=== PATIENT | male | born 1950 | race Caucasian/White ===

== ENCOUNTER → 2016-07-01 | Outpatient (CLI) | payer MEDICARE ==
[2015-09-22 12:47] VITALS: BP 105/50
[~2016-07-01] MED LIST: ALLO300T PO; CANA100T PO; CARV12.52 PO; FURO40TA4 PO; HYDR-2679 PO; HYDR1TAB14 PO; INSU100I11 SQ; INSU100V13 SQ; METO5TAB4 PO; MINO50TA2 PO; POTA10CA PO; SAXA1TBM3 PO; SITA1TAB11 PO; VALS1TAB29 PO; [UNRECOGNIZED DRUG - CODE] PO
--- NOTE | 2016-07-01 12:59 | CARD ---
APPROVED REPORT EXAM: Two-dimensional and M-mode echocardiogram with Doppler and color Doppler. Other Information Quality : Average Rhythm : NSR INDICATION Murmur 2D DIMENSIONS RVDd3.2 (2.9-3.5cm)Left Atrium(2D)3.4 (1.6-4.0cm) IVSd1.0 (0.7-1.1cm)Aortic Root(2D)3.6 (2.0-3.7cm) LVDd4.7 (3.9-5.9cm)LVOT Diameter2.4 (1.8-2.4cm) PWd1.0 (0.7-1.1cm)LVDs3.4 (2.5-4.0cm) FS (%) 27.8 %SV55.4 ml LVEF(%)53.8 (>50%) Aortic Valve AoV Peak Sean.95.0cm/sAoV VTI14.3cm AO Peak GR.3.6mmHgLVOT Peak Sean.74.8cm/s LVOT VTI 13.26cmAO Mean GR.2mmHg SAFIA (VMAX)3.23lj9VZJ (VTI)4.30cm2 Mitral Valve MV E Ynaqsdpj68.6cm/sMV DECEL UCEP549ah MV A Puojdkjv80.1cm/sMV E Mean Gr.1mmHg MV MMG47emB/A Ratio0.8 MV A Mrxnixpm118lnHPC (PHT)4.16cm2 TDI E/Lateral E'7.9E/Medial E'8.3 Pulmonary Valve PV Peak Dfdxovwe95.6cm/sPV Peak Grad.3mmHg RVOT VTI12.5cm Tricuspid Valve TR P. Duovavzy133as/sRAP SKMZPTIK7hsUq TR Peak Gr.73slVpMRQF75vgPy Pulmonary Vein S1 Ucrrcztm65.9cm/sD2 Dxhnldys78.9cm/s LEFT VENTRICLE The left ventricle is normal size. There is normal left ventricular wall thickness. Left ventricle sy stolic function is normal. The Ejection Fraction is 50-55%. There is normal LV segmental wall motion. Tissue Doppler imaging reveals mild left ventricular diastolic dysfunction. Transmitral Doppler flow pattern is Grade I-abnormal relaxation pattern. RIGHT VENTRICLE The right ventricle is normal size. The right ventricular systolic function is normal. ATRIA The left atrium size is normal. The right atrium size is normal. The interatrial septum is intact wit h no evidence for an atrial septal defect or patent foramen ovale as noted on 2-D or Doppler imaging. AORTIC VALVE The aortic valve is normal in structure and function. The aortic valve is trileaflet. Doppler and Col or Flow revealed no significant aortic regurgitation. There is no significant aortic valvular stenosi s. MITRAL VALVE The mitral valve is normal in structure and function. There is no mitral valve stenosis. Doppler and Color Flow revealed no mitral valve regurgitation noted. TRICUSPID VALVE The tricuspid valve is not well visualized. Doppler and Color Flow revealed mild tricuspid regurgitat ion. The PA pressure was estimated at 24 mmHg. There is no tricuspid valve stenosis. PULMONIC VALVE The pulmonic valve is not well visualized. Doppler and Color Flow revealed no pulmonic valvular regur gitation. There is no pulmonic valvular stenosis. GREAT VESSELS The aortic root is normal in size. Normal pulmonary venous flow (Doppler). The IVC is normal in size and collapses >50% with inspiration. PERICARDIAL EFFUSION There is no evidence of significant pericardial effusion. Critical Notification Critical Value: No <Conclusion> The left ventricle is normal size. Left ventricle systolic function is normal. The Ejection Fraction is 50-55%. There is no significant aortic valvular stenosis. Doppler and Color Flow revealed no significant aortic regurgitation. Doppler and Color Flow revealed no mitral valve regurgitation noted. Doppler and Color Flow revealed mild tricuspid regurgitation. The PA pressure was estimated at 24 mmHg.
== END | disposition home or self-care (01) ==
LOC: ECHO 09:50
PROVIDERS: ATTEND Internal Medicine Cardiovascular Disease
DX: R01.1 Cardiac murmur, unspecified (principal); I07.1 Rheumatic tricuspid insufficiency
CPT/HCPCS: 93306

== ENCOUNTER → 2017-02-25 | Outpatient (CLI) | payer MEDICARE ==
[2015-09-22 12:47] VITALS: BP 105/50
[~2017-02-25] MED LIST changes: +AMLO1TAB99 PO; -POTA10CA PO; +POTASSIUM CHLO10 MEQ PO; -[UNRECOGNIZED DRUG - CODE] PO
--- NOTE | 2017-02-25 10:53 | RAD ---
APPROVED REPORT Patient Location : OUT-PATIENT Indications Lower Extremity Edema : Bilateral Findings Brannon scale images of the bilateral greater and lesser saphenous veins do not reveal any evidence of t hrombus on limited imaging. Color doppler and spectral images do not reveal any obstruction to flow or reflux in the superficial veins. R GSV measures 0.69 cm and left GSV measures 0.58 cm. No reflux Bilateral lesser saphenous veins do not reflux. Critical Notification Critical Value: No <Conclusion> No evidence of reflux in the bilateral greater and lesser saphenous veins.
== END | disposition home or self-care (01) ==
LOC: US 09:39
PROVIDERS: ATTEND Internal Medicine Cardiovascular Disease
DX: R60.0 Localized edema (principal)
CPT/HCPCS: 93970

== ENCOUNTER 2017-08-20 02:27 | Observation (INO) | payer MEDICARE ==
[2017-08-20] MEDS ORDERED: ACETAMINOPHEN 650 MG/20.3 ML SOLUTION. PEG (03:00)
[2017-08-20] MEDS: IV NORMAL SALINE 1000ML BAG 1,000 ML IV (03:00)
[2017-08-20 03:40] LABS: ADD MAN DIFF? NO
[2017-08-20 03:42] LABS: BASO # 0.1 x10^3/uL (0.0-0.2); BASO % 2 % (0-3); EOS # 0.4 x10^3/uL (0.0-0.7); EOS % 5 % (0-3); HEMATOCRIT 43.1 % (39.0-53.0); HEMOGLOBIN 14.5 g/dL (13.0-17.5); LYMPH # 1.6 x10^3/uL (1.0-4.8); LYMPH % 24 % (24-48); MEAN CORPUSCULAR HEMOGLOBIN 32 pg (25-35); MEAN CORPUSCULAR HGB CONC 34 g/dL (31-37); MEAN CORPUSCULAR VOLUME 96 fL (79-100); MONO # 0.6 x10^3/uL (0.0-1.1); MONO % 9 % (0-9); NEUT % 60 % (31-73); PLATELET COUNT 193 x10^3/uL (140-400); RED BLOOD COUNT 4.51 x10^6/uL (4.30-5.70); RED CELL DISTRIBUTION WIDTH 13.9 % (11.5-14.5); WHITE BLOOD COUNT 6.7 x10^3/uL (4.0-11.0)
[2017-08-20 03:51] LABS: ANION GAP 6 (6-14); BLOOD UREA NITROGEN 30 mg/dL (8-26); BUN/CREATININE RATIO 23 (6-20); CARBON DIOXIDE 27 mmol/L (21-32); CHLORIDE 108 mmol/L (98-107); CREATININE 1.3 mg/dL (0.7-1.3); GFR 55.1; GLUCOSE 219 mg/dL (70-99); SODIUM 141 mmol/L (136-145)
[2017-08-20 03:57] LABS: ALBUMIN 3.3 g/dL (3.4-5.0); ALK PHOS 81 U/L (46-116); ALT (SGPT) 17 U/L (16-63); AST (SGOT) 14 U/L (15-37); TOTAL BILIRUBIN 0.7 mg/dL (0.2-1.0); TOTAL PROTEIN 6.5 g/dL (6.4-8.2)
[2017-08-20 04:02] LABS: NT-PRO BNP 218 pg/mL (0-124); TROPONINI < 0.017 ng/mL (0.000-0.055)
[2017-08-20] MEDS ORDERED: NITROGLYCERIN OINT 1 GM PACKET. (05:04)
[2017-08-20] MEDS: NITROGLYCERIN OINT 1 GM PACKET. TP (05:05)
[2017-08-20] MEDS ORDERED: ONDANSETRON PF 4 MG/2 ML VIAL. IV (05:15)
[2017-08-20] MEDS ORDERED: ACETAMINOPHEN 325 MG TABLET. PO (05:15)
[2017-08-20] MEDS: FUROSEMIDE 40 MG/4 ML VIAL. IVP ×2 (05:30→08:17)
[2017-08-20] MEDS: INSULIN LISPRO 300 UNITS/3 ML INSULN.PEN. SQ ×7 (07:30→20:45)
[2017-08-20] MEDS ORDERED: DEXTROSE 50% 25 GM / 50ML DISP.SYRIN. IV (08:00)
[2017-08-20] MEDS: CARVEDILOL 12.5 MG TABLET. PO ×2 (08:26→17:23)
[2017-08-20] MEDS: POTASSIUM CHLORIDE 10 MEQ TABLET.ER. PO (08:27)
[2017-08-20] MEDS ORDERED: INSULIN GLARGINE 300 UNITS/3 ML INSULN.PEN. SQ (09:00)
[2017-08-20] MEDS: metOLazone 2.5 MG TABLET PO (09:00)
[2017-08-20] MEDS: ALLOPURINOL 300 MG TABLET. PO (09:58)
[2017-08-20] MEDS: LOSARTAN POTASSIUM 50 MG TABLET. PO (09:58)
[2017-08-20] MEDS: FUROSEMIDE 40 MG TABLET. PO ×2 (09:59→14:41)
[2017-08-20] MEDS: amLODIPine BESYLATE 10 MG TABLET PO (09:59)
[2017-08-20] MEDS: MINOCYCLINE 100 MG CAPSULE PO (10:00)
[2017-08-20] MEDS: ENOXAPARIN 40 MG/0.4 ML SYRINGE. SQ ×2 (10:00→20:46)
[2017-08-20 10:11] LABS: POC GLUCOSE 193 mg/dL (70-99)
[2017-08-20 11:45] LABS: POC GLUCOSE 114 mg/dL (70-99)
[2017-08-20 17:13] LABS: POC GLUCOSE 178 mg/dL (70-99)
[2017-08-20] MEDS: INSULIN GLARGINE 300 UNITS/3 ML INSULN.PEN. SQ (20:45)
[2017-08-20] MEDS: ATORVASTATIN CALCIUM 40 MG TABLET. PO (20:46)
[2017-08-20 20:58] LABS: POC GLUCOSE 78 mg/dL (70-99)
[2017-08-20] MEDS: TEMAZEPAM 15 MG CAPSULE PO (23:01)
[2017-08-21 04:37] LABS: ADD MAN DIFF? NO
[2017-08-21 04:49] LABS: BASO # 0.1 x10^3/uL (0.0-0.2); BASO % 1 % (0-3); EOS # 0.4 x10^3/uL (0.0-0.7); EOS % 5 % (0-3); HEMATOCRIT 41.9 % (39.0-53.0); HEMOGLOBIN 14.3 g/dL (13.0-17.5); LYMPH % 26 % (24-48); MEAN CORPUSCULAR HEMOGLOBIN 32 pg (25-35); MEAN CORPUSCULAR HGB CONC 34 g/dL (31-37); MEAN CORPUSCULAR VOLUME 95 fL (79-100); MONO # 0.7 x10^3/uL (0.0-1.1); MONO % 10 % (0-9); NEUT # 4.4 x10^3uL (1.8-7.7); NEUT % 58 % (31-73); PLATELET COUNT 180 x10^3/uL (140-400); RED BLOOD COUNT 4.41 x10^6/uL (4.30-5.70); RED CELL DISTRIBUTION WIDTH 14.1 % (11.5-14.5); WHITE BLOOD COUNT 7.5 x10^3/uL (4.0-11.0)
[2017-08-21] MEDS: INSULIN LISPRO 300 UNITS/3 ML INSULN.PEN. SQ ×6 (07:30→17:28)
[2017-08-21 08:14] LABS: POC GLUCOSE 178 mg/dL (70-99)
[2017-08-21] MEDS: REGADENOSON 0.4 MG/5 ML DISP.SYRIN. IV (08:30)
[2017-08-21 10:01] LABS: ANION GAP 7 (6-14); BLOOD UREA NITROGEN 27 mg/dL (8-26); CALCIUM 8.5 mg/dL (8.5-10.1); CARBON DIOXIDE 29 mmol/L (21-32); CHLORIDE 106 mmol/L (98-107); CREATININE 1.2 mg/dL (0.7-1.3); GFR 60.4; GLUCOSE 192 mg/dL (70-99); POTASSIUM 3.8 mmol/L (3.5-5.1); SODIUM 142 mmol/L (136-145)
[2017-08-21] MEDS: FUROSEMIDE 40 MG TABLET. PO ×2 (10:24→15:17)
[2017-08-21] MEDS: ALLOPURINOL 300 MG TABLET. PO (10:24)
[2017-08-21] MEDS: POTASSIUM CHLORIDE 10 MEQ TABLET.ER. PO (10:25)
[2017-08-21] MEDS: LOSARTAN POTASSIUM 50 MG TABLET. PO (10:29)
[2017-08-21] MEDS: MINOCYCLINE 100 MG CAPSULE PO (10:30)
[2017-08-21] MEDS: CARVEDILOL 12.5 MG TABLET. PO ×2 (10:30→17:24)
[2017-08-21] MEDS: ENOXAPARIN 40 MG/0.4 ML SYRINGE. SQ (10:31)
[2017-08-21 17:09] LABS: POC GLUCOSE 250 mg/dL (70-99)
[2017-08-21 17:48] LABS: POC GLUCOSE 250 mg/dL (70-99)
[2017-08-21] MEDS ORDERED: LACTOBACILLUS RHAMNOSUS GG 1 CAPSULE. PO (21:00)
== END 2017-08-21 19:00 | disposition home or self-care (01) ==
LOC: ER 02:27 → 2 SOUTH 04:58
DX: I13.0 Hypertensive heart and chronic kidney disease with heart failure and stage 1 through stage 4 chronic kidney disease, or unspecified chronic kidney disease (principal); I50.33 Acute on chronic diastolic (congestive) heart failure; N18.9 Chronic kidney disease, unspecified; G47.33 Obstructive sleep apnea (adult) (pediatric); E78.5 Hyperlipidemia, unspecified; E78.00 Pure hypercholesterolemia, unspecified; E11.22 Type 2 diabetes mellitus with diabetic chronic kidney disease; E11.69 Type 2 diabetes mellitus with other specified complication; Z82.49 Family history of ischemic heart disease and other diseases of the circulatory system; Z83.3 Family history of diabetes mellitus
CPT/HCPCS: 36415; 71045; 78452; 80048; 80053; 82962; 83880; 84484; 85025; 93005; 93017; 93306; 96361; 96372; 96374; 96375; 99285-25; A9500; G0378; G0379; J1650; J1815; J1940; J2785; J7030

== ENCOUNTER → 2017-09-03 | Outpatient (CLI) | payer MEDICARE | END | disposition home or self-care (01) | LOC: US 08:18 | DX: I87.2 Venous insufficiency (chronic) (peripheral) (principal) | CPT/HCPCS: 93970 ==

== ENCOUNTER 2018-05-12 16:55 | Emergency (ER) | payer MEDICARE ==
[~2018-05-12] VITALS: Ht 182.9 cm; Wt 149.7 kg
[~2018-05-12 16:55] MED LIST changes: +AMLO10TA4 PO; +ATOR40TA59 PO; +CARV12.511 PO; -CARV12.52 PO; +METF100010 PO; +POTA10TA12 PO; -POTASSIUM CHLO10 MEQ PO; +VALS320T2 PO
[2018-05-12 17:27] VITALS: BP 197/95
--- NOTE | 2018-05-12 17:38 | PHYS DOC ---
Past Medical History Past Medical History: CHF, Diabetes-Type II, High Cholesterol, Hypertension Additional Past Medical Histor: Gout, MYLA, BULGING DISCS Past Surgical History: No Surgical History Additional Past Surgical Histo: right knee repair, BACK SURG, CATARACT Alcohol Use: Occasionally Drug Use: None Adult General Chief Complaint Chief Complaint: RECTAL BLEED [facility] Patient is a 67 YO M that is presenting with one episode of bright red blood per rectum this morning. He reports that he had a colonoscopy on April 27 and they removed three polyps and repaired an internal hemorrhoid. He has not had any bloody stools before this morning. He denies N/V/D/C, abdominal pain, chest pain, and fever/chills. He denies using anticoagulation. He denies trauma. Review of Systems Review of Systems Constitutional: Denies fever or chills [] Eyes: Denies change in visual acuity, redness, or eye pain [] HENT: Denies nasal congestion or sore throat [] Respiratory: Denies cough or shortness of breath [] Cardiovascular: No additional information not addressed in [facility] [] GI: Denies abdominal pain, nausea, vomiting, diarrhea; reports bloody stools [] : Denies dysuria or hematuria [] Musculoskeletal: Denies back pain or joint pain [] Integument: Denies rash or skin lesions [] Neurologic: Denies headache, focal weakness or sensory changes [] Complete systems were reviewed and found to be within normal limits, except as documented in this note. Allergies Allergies Allergies Coded Allergies Type Severity Reaction Last Updated Verified Sulfa (Sulfonamide Antibiotics) Allergy Intermediate 09/22/15 Yes morphine Allergy Intermediate 09/22/15 No Physical Exam Physical Exam Constitutional: Well developed, well nourished, no acute distress, non-toxic appearance. [] HENT: Normocephalic, atraumatic, nose normal. [] Eyes: Conjunctiva normal, no discharge. [] Neck: Normal range of motion, no tenderness, supple. [] Cardiovascular: Heart rate regular rhythm, no murmur [] Lungs & Thorax: Bilateral breath sounds clear to auscultation [] Abdomen: Bowel sounds normal, soft, no tenderness, no masses, no pulsatile masses. [] Skin: Warm, dry, no erythema, no rash. [] Back: No tenderness, no CVA tenderness. [] Extremities: No tenderness, no edema. [] Neurologic: Alert and oriented X 3, no focal deficits noted. [] Psychologic: Affect normal, judgement normal, mood normal. [] Current Patient Data Vital Signs Vital Signs Date Time Temp Pulse Resp B/P (MAP) Pulse Ox O2 Delivery O2 Flow Rate FiO2 05/12/18 17:27 98.3 79 20 197/95 (129) 97 Room Air 98.3 Lab Values Laboratory Tests Test 05/12/18 17:46 White Blood Count 8.0 x10^3/uL (4.0-11.0) Red Blood Count 4.62 x10^6/uL (4.30-5.70) Hemoglobin 14.6 g/dL (13.0-17.5) Hematocrit 44.3 % (39.0-53.0) Mean Corpuscular Volume 96 fL (79-100) Mean Corpuscular Hemoglobin 32 pg (25-35) Mean Corpuscular Hemoglobin Concent 33 g/dL (31-37) Red Cell Distribution Width 14.9 % (11.5-14.5) H Platelet Count 203 x10^3/uL (140-400) Neutrophils (%) (Auto) 63 % (31-73) Lymphocytes (%) (Auto) 24 % (24-48) Monocytes (%) (Auto) 9 % (0-9) Eosinophils (%) (Auto) 4 % (0-3) H Basophils (%) (Auto) 1 % (0-3) Neutrophils # (Auto) 5.0 x10^3uL (1.8-7.7) Lymphocytes # (Auto) 1.9 x10^3/uL (1.0-4.8) Monocytes # (Auto) 0.7 x10^3/uL (0.0-1.1) Eosinophils # (Auto) 0.3 x10^3/uL (0.0-0.7) Basophils # (Auto) 0.1 x10^3/uL (0.0-0.2) Prothrombin Time 13.7 SEC (11.7-14.0) Prothrombin Time INR 1.1 (0.8-1.1) PTT 29 SEC (24-38) Laboratory Tests 05/12/18 17:46 EKG EKG [] Radiology/Procedures Radiology/Procedures [] Course & Med Decision Making Course & Med Decision Making Pertinent Labs and Imaging studies reviewed. (See chart for details) [] Dragon Disclaimer Dragon Disclaimer This electronic medical record was generated, in whole or in part, using a voice recognition dictation system. Departure Departure Impression: Primary Impression: Rectal bleeding Additional Impression: Internal hemorrhoid, bleeding Disposition: HOME, SELF-CARE Condition: STABLE Referrals: NO PCP (PCP) JANICE COHEN MD Patient Instructions: Hemorrhoids, Mphp-zb-Bvuy, Rectal Bleeding, Xdxo-hf-Svtp Additional Instructions: Use stool softners nightly to keep stool soft. Scripts Hydrocortisone Acetate (ANUSOL-HC) 25 Mg Supp.rect 1 SUPP RC BID, #20 SUPP Prov: PETER PEDRO DO 05/12/18 Problem Qualifiers PETER PEDRO DO May 12, 2018 17:38
[2018-05-12 18:03] LABS: BASO # 0.1 x10^3/uL (0.0-0.2); BASO % 1 % (0-3); EOS # 0.3 x10^3/uL (0.0-0.7); EOS % 4 % (0-3); HEMATOCRIT 44.3 % (39.0-53.0); HEMOGLOBIN 14.6 g/dL (13.0-17.5); LYMPH # 1.9 x10^3/uL (1.0-4.8); LYMPH % 24 % (24-48); MEAN CORPUSCULAR HEMOGLOBIN 32 pg (25-35); MEAN CORPUSCULAR HGB CONC 33 g/dL (31-37); MEAN CORPUSCULAR VOLUME 96 fL (79-100); MONO # 0.7 x10^3/uL (0.0-1.1); MONO % 9 % (0-9); NEUT % 63 % (31-73); PLATELET COUNT 203 x10^3/uL (140-400); RED BLOOD COUNT 4.62 x10^6/uL (4.30-5.70); RED CELL DISTRIBUTION WIDTH 14.9 % (11.5-14.5)
[2018-05-12 18:13] LABS: PROTHROMBIN TIME PATIENT 13.7 SEC (11.7-14.0)
[2018-05-12] MEDS ORDERED: HYDR25SU18 RC (18:40)
[2018-05-12 18:49] LABS: FECAL OB PT NEGATIVE (NEG)
== END 2018-05-12 18:56 | disposition home or self-care (01) ==
LOC: ER 16:55
DX: K64.8 Other hemorrhoids (principal); I11.0 Hypertensive heart disease with heart failure; I50.9 Heart failure, unspecified; E78.00 Pure hypercholesterolemia, unspecified; E11.9 Type 2 diabetes mellitus without complications; Z98.890 Other specified postprocedural states; Z88.2 Allergy status to sulfonamides; Z88.5 Allergy status to narcotic agent
CPT/HCPCS: 36415; 82274; 85025; 85610; 85730; 99283

== ENCOUNTER → 2018-09-10 | Outpatient (CLI) | payer MEDICARE, OTHER ==
[~2018-09-10] MED LIST changes: +HYDR25SU18 RC
--- NOTE | 2018-09-10 11:09 | RAD ---
MR#: [id number] Date of Study: 09/10/2018 Ordering Physician: RICHIE MEZA, Referring Physician: RICHIE MEZA, Tech: Moises Ibrahim MBA, RDMS, RVT, RDCS, RTR APPROVED REPORT Patient Location: OUT-PATIENT Indications Uncontrolled HTN Renal Artery Doppler Right Renal Artery Left Renal Arter y Proximal 90.0/22.0 cm/secProximal 132.0/24.0 cm/sec Mid 79.0/20.0 cm/secMid 97.0/20.0 cm/sec Distal 112.0/22.0 cm/secDistal 105.0/18.0 cm/sec Renal/Aorta Ratio 0.00Renal/Aorta Ratio 0.00 Prox. Resistive Index 0.76Prox. Resistive Index 0.82 Mid Resistive Index 0.75Mid Resistive Index 0.79 Distal Resistive Index Distal Resistive Index 0.83 Rt. Segmental A. 54.0/12.0 cm/secLt. Segmental A. 47.0/10.0 cm/sec Renal Measurements RightLeft Kidney Jxtwmn01.6 cm cmKidney Eynacv37.1 cm cm Right Additional FindingsLeft Additional Findings Findings Technically very difficult study and the aorta was not well visualized. There is bilateral renal gerry ical hypertrophy. Velocities within the proximal mid and distal renal arteries are not well visualized but grossly ther e appears be within normal limits. Unable to determine significant renal to aortic ratios or resistiv e indices but based on velocities overall being less than 180 there is low likelihood of significant renal artery stenosis. Critical Notification Critical Value: No <Conclusion> 1. No significant renal artery stenosis identified but technically very limited study. Signed by : Dino Maciel, Electronically Approved : 09/10/2018 11:08:58
--- NOTE | 2018-09-10 11:40 | CARD ---
MR#: [id number] Date of Study: 09/10/2018 Ordering Physician: RICHIE MEZA, Referring Physician: RICHIE MEZA, Tech: Ml Fallon [facility] APPROVED REPORT EXAM: Two-dimensional and M-mode echocardiogram with Doppler and color Doppler. Other Information Quality : Technically LimitedHR: 76bpm Rhythm : NSRTechnically limited study due to body habitus. INDICATION PHTN 2D DIMENSIONS RVDd3.1 (2.9-3.5cm)Left Atrium(2D)3.9 (1.6-4.0cm) IVSd1.3 (0.7-1.1cm)Aortic Root(2D)3.7 (2.0-3.7cm) LVDd6.4 (3.9-5.9cm)LVOT Diameter2.6 (1.8-2.4cm) PWd1.4 (0.7-1.1cm)LVDs4.8 (2.5-4.0cm) FS (%) 24.7 %SV99.5 ml LVEF(%)49.0 (>50%) M-Mode DIMENSIONS Left Atrium(MM)4.03 (2.5-4.0cm)Aortic Root3.81 (2.2-3.7cm) Aortic Valve AoV Peak Sean.150.0cm/sAoV VTI31.8cm AO Peak GR.9.0mmHgLVOT Peak Sean.89.9cm/s AO Mean GR.5mmHgAVA (VTI)3.00cm2 Mitral Valve MV E Qmsbsfhz62.1cm/sMV DECEL OYUI478wd MV A Yzymgfmj21.2cm/sE/A Ratio0.9 Pulmonary Valve PV Peak Dlskgyhg737.0cm/s Tricuspid Valve TR P. Onkjbear260dk/sRAP VZSOKXIX6riNh TR Peak Gr.98yqDvZAAV39ezXz Pulmonary Vein S1 Qfmfocao87.2cm/sD2 Jzlxhqvw27.5cm/s PVa afeznvnh11fqsk LEFT VENTRICLE The Left Ventricle is mildly dilated. There is mild to moderate concentric left ventricular hypertrop hy. Left ventricle systolic function is low normal. The Ejection Fraction is 50%. There is normal LV segmental wall motion. Transmitral Doppler flow pattern is Grade I-abnormal relaxation pattern. RIGHT VENTRICLE The right ventricle is normal size. There is normal right ventricular wall thickness. The right ventr icular systolic function is normal. ATRIA The left atrium is mildly dilated. The right atrium size is normal. The interatrial septum is intact with no evidence for an atrial septal defect or patent foramen ovale as noted on 2-D or Doppler imagi ng. AORTIC VALVE The aortic valve is not well visualized but grossly appears trileaflet. Doppler and Color Flow reveal ed no significant aortic regurgitation. There is no significant aortic valvular stenosis. There is no aortic valvular vegetation. MITRAL VALVE The mitral valve is normal in structure and function. There is no evidence of mitral valve prolapse. There is no mitral valve stenosis. Doppler and Color-flow revealed mild mitral regurgitation. TRICUSPID VALVE The tricuspid valve is normal in structure and function. Doppler and Color Flow revealed trace tricus pid regurgitation. The PA pressure was estimated at 35 mmHg. There is no tricuspid valve prolapse or vegetation. There is no tricuspid valve stenosis. PULMONIC VALVE The pulmonic valve is not well visualized. GREAT VESSELS The aortic root is mildly enlarged at 3.7cm. The ascending aorta is Mildly dilated at 3.7cm. The IVC is normal in size and collapses >50% with inspiration. PERICARDIAL EFFUSION There is no evidence of significant pericardial effusion. Critical Notification Critical Value: No <Conclusion> Left ventricle systolic function is low normal. The Ejection Fraction is 50%. There is normal LV segmental wall motion. There is mild to moderate concentric left ventricular hypertrophy. Doppler and Color Flow revealed trace tricuspid regurgitation. The PA pressure was estimated at 35 mm Hg. The ascending aorta is mildly dilated at 3.7cm. Signed by : Dino Maciel, Electronically Approved : 09/10/2018 11:40:01
== END | disposition home or self-care (01) ==
LOC: US 06:55
PROVIDERS: ATTEND Internal Medicine Cardiovascular Disease
DX: N28.81 Hypertrophy of kidney (principal); I34.0 Nonrheumatic mitral (valve) insufficiency; I11.9 Hypertensive heart disease without heart failure; I77.89 Other specified disorders of arteries and arterioles; I27.20 Pulmonary hypertension, unspecified
CPT/HCPCS: 93306; 93975

== ENCOUNTER 2019-02-13 12:55 | Emergency (ER) | payer MEDICARE, OTHER ==
[~2019-02-13] VITALS: Ht 182.9 cm; Wt 149.7 kg
[~2019-02-13 12:55] MED LIST changes: -HYDR1TAB14 PO; +HYDR1TAB15 PO
--- NOTE | 2019-02-13 13:42 | PHYS DOC ---
Past Medical History Past Medical History: CHF, Diabetes-Type II, High Cholesterol, Hypertension Additional Past Medical Histor: Gout, MYLA, BULGING DISCS Past Surgical History: No Surgical History Additional Past Surgical Histo: right knee repair, BACK SURG, CATARACT Alcohol Use: Occasionally Drug Use: None Adult General Chief Complaint Chief Complaint: BACK PAIN - NO INJURY HPI HPI Patient is a 68 year old [male who presents with [intermittent sharp lower right back pain. Patient reports he had similar pain approximately week ago on his left side, had seen Dr. Thorpe's office, was put on steroids for this and it seemed to help, however he started to have similar discomfort to right hip and lower back, worsening over the past day. States no history of falls, no trauma, does report he has a history of renal insufficiency, had been recently placed on metolazone which has been increased. States the pain feels sharp and stabbing and comes and goes. Denies abdominal pain, denies fever, denies history of prior kidney stones. States no pain when walking, but pain improves when he pushes on the area. Review of Systems Review of Systems Constitutional: Denies fever or chills [] Eyes: Denies change in visual acuity, redness, or eye pain [] Respiratory: Denies cough or shortness of breath any different than normal [] Cardiovascular: No additional information not addressed in HPI [] GI: Denies abdominal pain, nausea, vomiting, bloody stools or diarrhea [] : Denies dysuria or hematuria does report he has had increased urinary output recently[] Musculoskeletal: Reports lower right back pain or joint pain [] Integument: Denies rash or skin lesions [] Neurologic: Denies headache, focal weakness or sensory changes [] Endocrine: Denies polyuria or polydipsia [] All other systems were reviewed and found to be within normal limits, except as documented in this note. Current Medications Current Medications Current Medications Medications (Trade) Dose Ordered Sig/Taj Start Time Stop Time Status Last Admin Dose Admin Fentanyl Citrate (Fentanyl 2ml Vial) 50 mcg 1X ONCE 02/13/19 15:15 02/13/19 15:16 DC 02/13/19 15:12 50 MCG Hydromorphone HCl (Dilaudid) 0.5 mg 1X ONCE 02/13/19 17:00 02/13/19 17:01 DC 02/13/19 17:05 0.5 MG Ketorolac Tromethamine (Toradol 15mg Vial) 15 mg 1X ONCE 02/13/19 15:15 02/13/19 15:16 DC 02/13/19 15:11 15 MG Allergies Allergies Allergies Coded Allergies Type Severity Reaction Last Updated Verified Sulfa (Sulfonamide Antibiotics) Allergy Intermediate 09/22/15 Yes morphine Allergy Intermediate 09/22/15 No Physical Exam Physical Exam Constitutional: Well developed, Obese, no acute distress, non-toxic appearance. Pleasant[] HENT: Normocephalic, atraumatic, nose normal. [] Eyes: PERRLA, EOMI, conjunctiva normal, no discharge. [] Neck: Normal range of motion, no tenderness, supple, no stridor. [] Cardiovascular:Heart rate regular rhythm, no murmur [] Lungs & Thorax: Bilateral breath sounds clear to auscultation [] Abdomen: Bowel sounds normal, soft, no tenderness, no masses, no pulsatile masses. [] Skin: Warm, dry, no erythema, no rash. no lesions noted[] Back: Tenderness over right iliac crest intermittent, no CVA tenderness. [] Extremities: No tenderness, no cyanosis, no clubbing, ROM intact, +2 edema - reported unchanged from his normal. Ambulatory in ER with slight limp, able to raise legs from standing position without severe discomfort, does report contralateral discomfort on raising left[] Neurologic: Alert and oriented X 3, normal motor function, normal sensory function, no focal deficits noted. [] Psychologic: Affect normal, judgement normal, mood normal. [] Current Patient Data Vital Signs Vital Signs Date Time Temp Pulse Resp B/P (MAP) Pulse Ox O2 Delivery O2 Flow Rate FiO2 02/13/19 17:00 82 20 149/74 (99) 96 Room Air 02/13/19 13:15 98.7 98.7 Lab Values Laboratory Tests Test 02/13/19 13:45 02/13/19 14:10 White Blood Count 11.7 x10^3/uL (4.0-11.0) H Red Blood Count 5.24 x10^6/uL (4.30-5.70) Hemoglobin 16.1 g/dL (13.0-17.5) Hematocrit 49.3 % (39.0-53.0) Mean Corpuscular Volume 94 fL (79-100) Mean Corpuscular Hemoglobin 31 pg (25-35) Mean Corpuscular Hemoglobin Concent 33 g/dL (31-37) Red Cell Distribution Width 15.3 % (11.5-14.5) H Platelet Count 241 x10^3/uL (140-400) Neutrophils (%) (Auto) 87 % (31-73) H Lymphocytes (%) (Auto) 8 % (24-48) L Monocytes (%) (Auto) 4 % (0-9) Eosinophils (%) (Auto) 0 % (0-3) Basophils (%) (Auto) 1 % (0-3) Neutrophils # (Auto) 10.2 x10^3/uL (1.8-7.7) H Lymphocytes # (Auto) 0.9 x10^3/uL (1.0-4.8) L Monocytes # (Auto) 0.5 x10^3/uL (0.0-1.1) Eosinophils # (Auto) 0.0 x10^3/uL (0.0-0.7) Basophils # (Auto) 0.1 x10^3/uL (0.0-0.2) Segmented Neutrophils % 92 % (35-66) H Lymphocytes % 5 % (24-48) L Monocytes % 3 % (0-10) Platelet Estimate Adequate (ADEQUATE) Sodium Level 140 mmol/L (136-145) Potassium Level 4.2 mmol/L (3.5-5.1) Chloride Level 103 mmol/L (98-107) Carbon Dioxide Level 30 mmol/L (21-32) Anion Gap 7 (6-14) Blood Urea Nitrogen 31 mg/dL (8-26) H Creatinine 1.6 mg/dL (0.7-1.3) H Estimated GFR (Cockcroft-Gault) 43.2 Glucose Level 209 mg/dL (70-99) H Calcium Level 9.3 mg/dL (8.5-10.1) Urine Collection Type Void Urine Color Yellow Urine Clarity Clear Urine pH 5.0 Urine Specific [place] 1.025 Urine Protein 100 mg/dL (NEG-TRACE) Urine Glucose (UA) 500 mg/dL (NEG) Urine Ketones (Stick) Negative mg/dL (NEG) Urine Blood Moderate (NEG) Urine Nitrite Negative (NEG) Urine Bilirubin Negative (NEG) Urine Urobilinogen Dipstick 0.2 mg/dL (0.2 mg/dL) Urine Leukocyte Esterase Negative (NEG) Urine RBC 3-5 /HPF (0-2) Urine WBC 0 /HPF (0-4) Urine Squamous Epithelial Cells None /LPF Urine Bacteria 0 /HPF (0-FEW) Urine Mucus Slight /LPF Laboratory Tests 02/13/19 13:45 Laboratory Tests 02/13/19 13:45 EKG EKG [] Radiology/Procedures Radiology/Procedures FINDINGS: Heart size is normal. No pericardial effusion. Visualized lung bases are clear. No pleural effusion. Evaluation of the solid organs is limited secondary to noncontrast technique. Liver, spleen, pancreas, gallbladder and adrenals are unremarkable. No perinephric inflammation or hydronephrosis. No renal or ureteral calculi are identified. Bladder is decompressed and not well evaluated. Prostate is not enlarged. There are a few scattered diverticula noted at the sigmoid colon without evidence of acute diverticulitis. Remainder of the large and small bowel are unremarkable. Appendix is normal. No free intra-abdominal air or fluid. Abdominal aorta has a normal course and caliber. No enlarged abdominal lymph nodes are identified. No suspicious osseous lesions or acute fractures. IMPRESSION: No renal or ureteral calculi. No evidence for obstructive uropathy. Exposure: One or more of the following in the visualized dose reduction techniques were utilized for this examination: 1. Automated exposure control 2. Adjustment of the MA and/or KV according to patient size 3. Use of iterative of reconstructive technique Electronically signed by: Hussein Garcia MD (02/13/2019 4:08 PM) [facility] [] Lumbar spine AP lateral x-rays 3 views HISTORY: Right greater than left bilateral iliac discomfort. FINDINGS: Lumbar vertebral body height and alignment intact. No fracture evident. Advanced disc height loss L5-S1 and endplate spurring. There are mild anterior endplate spurs at the lower thoracic spine and throughout all of the lumbar levels. Facet spurring at L4-5 and L5-S1. IMPRESSION: No acute osseous injury. Lumbar disc disease and arthritis as described above. AP pelvis and bilateral hip AP and lateral x-rays HISTORY: Bilateral iliac discomfort. FINDINGS: No fracture. No dislocation. Bilateral hip arthritis with acetabulum spurs. The sacroiliac joints are unremarkable. Soft tissues unremarkable. IMPRESSION: No acute osseous injury. Bilateral hip osteoarthritis. Electronically signed by: Manny Carrizales MD (02/13/2019 2:20 PM) [facility] Course & Med Decision Making Course & Med Decision Making Pertinent Labs and Imaging studies reviewed. (See chart for details) [Discussed findings with patient, without noted imaging abnormalities other than osteoarthritis and spurs noted on acetabulum. Discussed lab results with patient, without significant abnormalities noted, believe minimally elevated WBC resuting from recent steroids. Discussed importance of continuing use of heat pack or ice pack is out, I will prescribe additional steroid courses as it of improved his discomfort last time. Patient does report he has an appointment with Dr. Thorpe on and will keep this appointment] Dragon Disclaimer Dragon Disclaimer This electronic medical record was generated, in whole or in part, using a voice recognition dictation system. Departure Departure Impression: Primary Impression: Osteoarthritis, hip, bilateral Additional Impression: Hip pain Disposition: HOME, SELF-CARE Condition: STABLE Referrals: PETER THORPE MD (PCP) Patient Instructions: Hip Pain Additional Instructions: As we discussed, take the steroid course as prescribed. Keep her appointment with Dr. Thorpe on this week. He may try Tylenol arthritis as we have discussed. He should use the heat pack or cold pack whichever feels better. Scripts Prednisone (PREDNISONE) 20 Mg Tablet 20 MG PO DAILY, #10 TAB Take 40 mg daily for 2 days, 30 mg for 2 days (1.5 tablets), 20 mg daily for 2 days, and 10 mg (1/2 tablet daily) for 2 days. Prov: DANIA PATEL APRN 02/13/19 Problem Qualifiers Primary Impression: Osteoarthritis, hip, bilateral Osteoarthritis type: unspecified Qualified Codes: M16.0 - Bilateral primary osteoarthritis of hip Additional Impression: Hip pain Laterality: bilateral Qualified Codes: M25.551 - Pain in right hip; M25.552 - Pain in left hip DANIA PATEL APRN Feb 13, 2019 13:42
[2019-02-13] MEDS ORDERED: fentaNYL PF VIAL 100 MCG/2 ML VIAL IM ONE (13:45)
[2019-02-13 13:59] LABS: BASO # 0.1 x10^3/uL (0.0-0.2); BASO % 1 % (0-3); EOS % 0 % (0-3); HEMATOCRIT 49.3 % (39.0-53.0); HEMOGLOBIN 16.1 g/dL (13.0-17.5); LYMPH # 0.9 x10^3/uL (1.0-4.8); LYMPH % 8 % (24-48); MEAN CORPUSCULAR HEMOGLOBIN 31 pg (25-35); MEAN CORPUSCULAR HGB CONC 33 g/dL (31-37); MEAN CORPUSCULAR VOLUME 94 fL (79-100); MONO # 0.5 x10^3/uL (0.0-1.1); MONO % 4 % (0-9); NEUT # 10.2 x10^3/uL (1.8-7.7); NEUT % 87 % (31-73); PLATELET COUNT 241 x10^3/uL (140-400); RED BLOOD COUNT 5.24 x10^6/uL (4.30-5.70); RED CELL DISTRIBUTION WIDTH 15.3 % (11.5-14.5); WHITE BLOOD COUNT 11.7 x10^3/uL (4.0-11.0)
[2019-02-13 14:10] LABS: CALCIUM 9.3 mg/dL (8.5-10.1); CREATININE 1.6 mg/dL (0.7-1.3); GFR 43.2; POTASSIUM 4.2 mmol/L (3.5-5.1)
[2019-02-13] MEDS ORDERED: fentaNYL PF VIAL 100 MCG/2 ML VIAL IV ONE ×2 (14:15→15:15)
--- NOTE | 2019-02-13 14:23 | RAD ---
Lumbar spine AP lateral x-rays 3 views HISTORY: Right greater than left bilateral iliac discomfort. FINDINGS: Lumbar vertebral body height and alignment intact. No fracture evident. Advanced disc height loss L5-S1 and endplate spurring. There are mild anterior endplate spurs at the lower thoracic spine and throughout all of the lumbar levels. Facet spurring at L4-5 and L5-S1. IMPRESSION: No acute osseous injury. Lumbar disc disease and arthritis as described above. AP pelvis and bilateral hip AP and lateral x-rays HISTORY: Bilateral iliac discomfort. FINDINGS: No fracture. No dislocation. Bilateral hip arthritis with acetabulum spurs. The sacroiliac joints are unremarkable. Soft tissues unremarkable. IMPRESSION: No acute osseous injury. Bilateral hip osteoarthritis. Electronically signed by: Manny Carrizales MD (02/13/2019 2:20 PM) [facility]
[2019-02-13 14:33] LABS: BILIRUBIN,URINE NEGATIVE (NEG); CLARITY,URINE CLEAR; COLOR,URINE YELLOW; NITRITE,URINE NEGATIVE (NEG); PROTEIN,URINE 100 mg/dL (NEG-TRACE); UROBILINOGEN,URINE 0.2 mg/dL (0.2 mg/dL)
[2019-02-13 14:38] LABS: WBC,URINE 0 /HPF (0-4)
[2019-02-13 14:39] LABS: BACTERIA,URINE 0 /HPF (0-FEW)
[2019-02-13 15:15] LABS: % LYMPHS 5 % (24-48); % MONOS 3 % (0-10); % SEGS 92 % (35-66)
[2019-02-13] MEDS ORDERED: KETOROLAC 15 MG/ML VIAL. IVP ONE (15:15)
[2019-02-13 15:25] LABS: PLT ESTIMATE ADEQUATE (ADEQUATE)
[2019-02-13] MEDS ORDERED: HYDROmorphone 2 MG/ML VIAL IV ONE ×2 (15:45→17:00)
--- NOTE | 2019-02-13 16:11 | RAD ---
Exam: CT abdomen and pelvis without contrast INDICATION: Right lower quadrant pain TECHNIQUE: Sequential axial images through the abdomen and pelvis obtained without IV contrast. Sagittal and coronal reformatted images were reconstructed from the axial data and reviewed. Comparisons: None FINDINGS: Heart size is normal. No pericardial effusion. Visualized lung bases are clear. No pleural effusion. Evaluation of the solid organs is limited secondary to noncontrast technique. Liver, spleen, pancreas, gallbladder and adrenals are unremarkable. No perinephric inflammation or hydronephrosis. No renal or ureteral calculi are identified. Bladder is decompressed and not well evaluated. Prostate is not enlarged. There are a few scattered diverticula noted at the sigmoid colon without evidence of acute diverticulitis. Remainder of the large and small bowel are unremarkable. Appendix is normal. No free intra-abdominal air or fluid. Abdominal aorta has a normal course and caliber. No enlarged abdominal lymph nodes are identified. No suspicious osseous lesions or acute fractures. IMPRESSION: No renal or ureteral calculi. No evidence for obstructive uropathy. Exposure: One or more of the following in the visualized dose reduction techniques were utilized for this examination: 1. Automated exposure control 2. Adjustment of the MA and/or KV according to patient size 3. Use of iterative of reconstructive technique Electronically signed by: Hussein Garcia MD (02/13/2019 4:08 PM) [id number]
[2019-02-13] MEDS ORDERED: PRED20TA PO (16:52)
[2019-02-13 17:00] VITALS: BP 149/74
== END 2019-02-13 17:23 | disposition home or self-care (01) ==
LOC: ER 12:55
DX: M16.0 Bilateral primary osteoarthritis of hip (principal); M54.5 Low back pain; I11.0 Hypertensive heart disease with heart failure; I50.9 Heart failure, unspecified; E78.00 Pure hypercholesterolemia, unspecified; E11.9 Type 2 diabetes mellitus without complications; M10.9 Gout, unspecified; Z88.2 Allergy status to sulfonamides; Z88.5 Allergy status to narcotic agent
CPT/HCPCS: 36415; 72100; 73521; 74176; 80048; 81001; 85007; 85025; 96374; 96375; 96376; 99285; J1170; J1885; J3010